=== PATIENT | male | born 1950 | race Caucasian/White ===

== ENCOUNTER 2023-05-11 15:19 | Emergency (ER) | payer OTHER ==
[~2023-05-11] VITALS: Ht 175.3 cm; Wt 82.0 kg
[2023-05-11 15:23] VITALS: O2SAT 99
[2023-05-11] MEDS ORDERED: HYDROCODONE/ACETAMINOPHEN 5/325MG TABLET PO ONE (15:45)
[2023-05-11] MEDS ORDERED: HYDR-4001 MT (18:02)
[2023-05-11 18:15] VITALS: BP 163/93; PULSE 85; RESP 17; TEMP 98.8
== END 2023-05-11 18:46 | disposition home or self-care (01) ==
LOC: ER 15:19
DX: M54.50 Low back pain, unspecified (principal); M25.552 Pain in left hip
CPT/HCPCS: 71250; 72131; 72192; 99284